=== PATIENT | male | born 1985 | race Caucasian/White ===

== ENCOUNTER 2016-09-28 00:02 | Emergency (ER) | payer BC ==
[2016-09-28 00:18] VITALS: BP 141/87
[2016-09-28] MEDS ORDERED: Ketorolac 60 MG/2 ML SDV IM ONE (00:49)
[2016-09-28] MEDS ORDERED: Acetaminophen/HYDROcodone 325-10 MG Tab PO ONE (02:06)
--- NOTE | 2016-09-28 02:11 | EDM.PDOC ---
ED HPI Trauma - General Chief Complaint: Lower Extremity Injury/Pain Stated Complaint: RIGHT ANKLE PAIN Time Seen by Provider: 09/28/16 00:04 Source: Reports: Patient History Limitations: Reports: No limitations - History of Present Illness INITIAL COMMENTS - FREE TEXT/NARRATIVE: 31-year-old male complaining of right ankle injury. Patient states he was chased by a herd of bison today and twisted his ankle. Swelling on the lateral aspect of the ankle and pain since other injury or complaint HISTORY AND PHYSICAL: History of present illness: [] Review of systems: As per history of present illness and below otherwise all systems reviewed and negative. Past medical history: As per history of present illness and as reviewed below otherwise noncontributory. Surgical history: As per history of present illness and as reviewed below otherwise noncontributory. Social history: No reported history of drug or alcohol abuse. Family history: As per history of present illness and as reviewed below otherwise noncontributory. Physical exam: HEENT: Normocephalic, atraumatic, pupils normal and symmetrical, supple neck, no meningismus, normal color Lungs: Normal and symmetrical chest wall excursion bilateral with no tachypnea or increased work of breathing, grossly normal chest exam Heart: No tachycardia in triage Abdomen: Normal-appearing, nondistended, no visible mass or asymmetry Pelvis: Normal-appearing Genitourinary: Deferred Rectal exam: Deferred Extremities: Right ankle swelling laterally in the anterior talofibular ligament distribution. No bony tenderness. No deformity. Neurovascularly intact Extremities otherwise Atraumatic, normal use and range of motion, no visible evidence of gross neurovascular compromise Neuro: Awake, alert, oriented. Normal and appropriate mental status. Cranial nerves grossly unremarkable. Motor function normal. Nonfocal neurologic exam. Diagnostics: [X-ray right ankle and foot negative for fracture] Therapeutics: foot/ ankle Splint applied by nurse and ER M.D. Neurovascularly intact status post application] Impression: [] Plan: [Signs and symptoms consistent with sprain. Splinted. Followup or flow. NSAIDs patient agrees with outpatient followup strict return precautions given] Definitive disposition and diagnosis as appropriate pending reevaluation and review of above. Allergies/ADRs: Allergies No Known Allergies Allergy (Verified 09/28/16 00:17) Home Medications: Ambulatory Orders Lisdexamfetamine Dimesylate [Vyvanse] 60 mg PO DAILY 09/28/16 [Confirmed ] Past Medical History - Past Health History Medical/Surgical History: Denies Medical/Surgical History Psychiatric History: Reports: ADD - Infectious Disease History Infectious Disease History: Reports: Chicken pox Social & Family History - Family History Family Medical History: Noncontributory - Tobacco Use Smoking Status *Q: Current Every Day Smoker Years of Tobacco use: 15 Packs/Tins Daily: 1 - Caffeine Use Caffeine Use: Reports: Coffee Caffeine Use Comment: 2-3cups/day - Alcohol Use Days Per Week of Alcohol Use: 1 Number of Drinks Per Day: 2 Total Drinks Per Week: 2 - Recreational Drug Use Recreational Drug Use: No Review of Systems - Review of Systems Review Of Systems: See Below (History of present illness) Trauma Exam - Physical Exam Exam: See Below (History of present illness) Course - Vital Signs Last Recorded V/S: Last Vital Signs Temp 36.3 C 09/28/16 00:13 Pulse 111 H 09/28/16 00:13 Resp 20 09/28/16 00:13 BP 141/87 H 09/28/16 00:13 Pulse Ox 96 09/28/16 00:13 - Orders/Labs/Meds Orders: Active Orders 24 hr Category Date Time Status Ankle Min 3V Rt [CR] Stat Exams 09/28/16 00:49 Ordered Foot Comp Min 3V Rt [CR] Stat Exams 09/28/16 00:49 Ordered Meds: Medications Discontinued Medications Generic Name Dose Route Start Last Admin Trade Name Karlosq PRN Reason Stop Dose Admin Hydrocodone Bitart/Acetaminophen 1 tab 09/28/16 02:06 09/28/16 02:30 [place] 325-10 Mg PO 09/28/16 02:07 1 tab ONETIME ONE Administration Ketorolac Tromethamine 60 mg 09/28/16 00:49 09/28/16 01:05 Toradol IM 09/28/16 00:50 60 mg ONETIME ONE Administration Departure - Departure Time of Disposition: 02:08 Disposition: Home, Self-Care 01 Condition: good Clinical Impression: Right ankle sprain Instructions: Ankle Sprain, [id number] Referrals: PCP,None [Primary Care Provider] - Forms: ED Department Discharge Additional Instructions: You have a right ankle sprain. Rest ice elevate. Wear walking boot and bear weight only as tolerated. Use crutches if necessary to avoid pain in the ankle. Take 800 mg of ibuprofen every 6 hours and use [place] one by mouth every 4-6 hours as needed for pain. Followup with your Dr. for reevaluation and referral to orthopedics or if you prefer with Dr. Seble Hinson, our orthopedic Dr. in 3 or 4 days for reevaluation and further treatment as needed. - My Orders Last 24 Hours: My Active Orders 09/28/16 00:49 Ankle Min 3V Rt [CR] Stat Foot Comp Min 3V Rt [CR] Stat - Assessment/Plan Last 24 Hours: My Active Orders 09/28/16 00:49 Ankle Min 3V Rt [CR] Stat Foot Comp Min 3V Rt [CR] Stat
--- NOTE | 2016-09-29 12:11 | CR ---
EXAM DATE: 09/28/16 PATIENT'S AGE: 31 Patient: KAR ALTAMIRANO Facility: [place], [place] Site . Site : 1985 Study: XRay Extremity Right [id number] 1:28:27 AM Ordering Physician: Liban Holley Final Report: INDICATION: injury TECHNIQUE: Right foot 3 views COMPARISON: None. FINDINGS: Bones: Alignment is normal. No fractures or bone lesions. Joint spaces: Unremarkable. Soft tissues: Unremarkable. IMPRESSION: Unremarkable right foot. Dictated by: Roland Burch MD @ 09/28/2016 02:04:26 (Electronic Signature) Report Signed by Proxy. SALMA
--- NOTE | 2016-09-29 12:12 | CR ---
EXAM DATE: 09/28/16 PATIENT'S AGE: 31 Patient: KAR ALTAMIRANO Facility: [place], [place] Site . Site : 1985 Study: XRay Extremity Right [id number] 1:28:05 AM Ordering Physician: Liban Holley Final Report: INDICATION: injury TECHNIQUE: Right ankle 3 views. COMPARISON: None. FINDINGS: Bones: Alignment is normal. No fractures or bone lesions. Joint spaces: Unremarkable. Soft tissues: Unremarkable. IMPRESSION: Unremarkable right ankle. Dictated by: Roland Burch MD @ 09/28/2016 02:04:59 (Electronic Signature) Report Signed by Proxy. SALMA
== END 2016-09-28 02:33 | disposition home or self-care (01) ==
LOC: MW.ED 00:02 → EDSEX 00:02 → MW.ED 02:33
DX: S93.401A Sprain of unspecified ligament of right ankle, initial encounter (principal); F17.210 Nicotine dependence, cigarettes, uncomplicated; Z79.899 Other long term (current) drug therapy; X50.1XXA Overexertion from prolonged static or awkward postures, initial encounter
CPT/HCPCS: 73610; 73630; 99283; A9270; J1885; 29515